=== PATIENT | female | born 1995 | race Caucasian/White ===

== ENCOUNTER 2021-03-12 10:45 | Emergency (ER) | payer OTHER, SELFPAY ==
--- NOTE | ~2021-03-12 | XR_ITS ---
. EXAMINATION: [id number] DATE: 03/12/2021 11:33 INDICATION: Right chest pain. TECHNIQUE: A frontal view of the chest and 3 views of the right ribs were obtained. COMPARISON: Chest 2 views 07/03/2017 FINDINGS: The chest demonstrates clear lungs without pneumonia, pleural effusion, or pneumothorax. Th e heart size is normal. There is a fracture deformity of right seventh rib. IMPRESSION: 1. Age indeterminant right seventh rib fracture. Reviewed, dictated and finalized at location A.
[2021-03-12 11:01] VITALS: BP 113/79; PULSE 80; RESP 14; TEMP 37.5; O2SAT 100
--- NOTE | 2021-03-12 11:07 | ED.GENADULT ---
HPI - General Adult General Chief complaint: Chest Pain Stated complaint: right side rib pain Time Seen by Provider: 03/12/21 11:07 Source: patient and RN notes reviewed History of Present Illness HPI narrative: Patient is a 25-year-old female who presents the urgent care with complaints of right rib pain under the right breast. Patient states is been ongoing for 8 days and seems to be worsening with movement and deep breathing. Patient denies any recent cough, fevers, shortness of breath. Patient states that she lifts heavy at work but denies of any trauma to the chest. Denies any recent falls. Patient has been taking aspirin for the pain. No other acute complaints. No acute distress noted. Patient aware of the plan of care. Some parts of this dictation were generated by voice recognition software and may contain typographical and/or grammatical inaccuracies. Related Data Home Medications Medication Instructions Recorded Confirmed No Home Medications 03/12/21 03/12/21 Allergies Allergy/AdvReac Type Severity Reaction Status Date / Time Penicillins Allergy Unknown HIVES Verified 03/12/21 11:10 Review of Systems Review of Systems: Narrative: CONSTITUTIONAL: Denies fever, chills, or sweats. EYES: Denies visual changes, redness, or discharge. ENT: Denies rhinorrhea, congestion, sore throat, or otalgia. CARDIOVASCULAR: Denies chest pain, palpitations, or edema. RESPIRATORY: Denies cough or dyspnea. Reports of right rib anterior tenderness and pain with deep breathing GASTROINTESTINAL: Denies abdominal pain, nausea, vomiting, or diarrhea. GENITOURINARY: Denies dysuria or hematuria. SKIN: Denies rash or itching. MUSCULOSKELETAL: Reports of right rib pain. Denies back pain, joint pain, or myalgia. NEUROLOGIC: Denies headache, numbness, or weakness. All other systems reviewed are negative, except as documented in HPI. PMFSH Comments At the time of my signature, I reviewed and agree with the nursing past medical, surgical, social, and family history. There is no relevant family history pertinent to the patient complaint. Exam Narrative: Exam Narrative: GENERAL: This is a well-nourished, well-developed patient, in no apparent distress. HEAD: normocephalic, atraumatic. EYES: PERRL. Sclera clear/white. Vision is grossly intact. EARS: External ears normal NOSE: External nose normal with no obvious nasal discharge, nares without redness, no rhinorrhea. THROAT: Mucous membranes moist NECK: Neck supple CARDIOVASCULAR: Regular rate and rhythm without murmurs, gallops, or rubs. RESPIRATORY: Clear to auscultation. Breath sounds equal bilaterally. No wheezes, rales, or rhonchi. Anterior right rib tenderness and obvious pain with deep breathing. No bruising to the chest noted. SKIN: warm, intact with no suspicious lesions or rash, good texture and turgor. NEURO: awake, alert, and oriented to person, place and time. There were no obvious focal neurologic abnormalities. EXTREMITIES: No clubbing, cyanosis, or edema. Course Vital Signs Vital signs: Vital Signs Temperature 99.5 F 03/12/21 11:01 Pulse Rate 80 03/12/21 11:01 Respiratory Rate 14 03/12/21 11:01 Blood Pressure 113/79 03/12/21 11:01 Pulse Oximetry 100 03/12/21 11:01 Temperature 99.5 F 03/12/21 11:01 Pulse Rate 80 03/12/21 11:01 Respiratory Rate 14 03/12/21 11:01 Blood Pressure 113/79 03/12/21 11:01 Pulse Oximetry 100 03/12/21 11:01 Reviewed Medical Decision Making MDM Narrative Medical decision making narrative: Reviewed x-ray results with the patient. She is aware that she does have a 7th rib fracture. Advised the patient not to bind the chest with anything. Avoid any heavy lifting or strenuous activity until pain is tolerated. It can take up to 1 month or longer for complete pain relief. Advised the patient to use Tylenol/ibuprofen as needed for pain. May use ice to the area when at rest. If you develop any increase in sympto
== END 2021-03-12 11:57 | disposition home or self-care (01) ==
PROVIDERS: Emergency Provider Nurse Practitioner Family
DX: S22.31XA Fracture of one rib, right side, initial encounter for closed fracture (principal)
CPT/HCPCS: 71101; 99213; G0463

== ENCOUNTER 2023-09-08 14:45 | Observation (INO) | payer OTHER, SELFPAY ==
[2023-09-08 15:11] VITALS: BP 110/63; PULSE 98
[2023-09-08 15:15] VITALS: BP 105/68; PULSE 102
[2023-09-08 15:30] VITALS: BP 104/66; PULSE 96
[2023-09-08 15:31] LABS: Appearance Urine Cloudy (Clear); Bacteria Urine None Seen /hpf; Bilirubin Urine Negative (Negative); Blood Urine Negative (Negative); Color Urine Yellow (Yellow); Glucose Urine UA Negative (Negative); Ketones Urine Negative (Negative); Leukocyte Esterase Ur Negative LEU/UL (NEGATIVE); Nitrate Urine Negative (Negative); Non Pathogenic Casts 0-2; Protein Urine Negative (Negative); RBC Urine 0-2 /hpf (0-2); Squamous Epithelial Cell Urine Few /hpf (Few); Urobilinogen Urine 0.2 mg/dL (<2.0); WBC Urine 0-5 /hpf (0-3); pH Urine 7.5 (5.0-9.0)
[2023-09-08 15:45] VITALS: BP 104/67; PULSE 90
[2023-09-08 15:48] LABS: Add Urine Microscopic? YES
[2023-09-08 16:00] VITALS: BP 103/64; PULSE 98
[2023-09-08 16:15] VITALS: BP 113/63; PULSE 90
[2023-09-08] MEDS: ACETAMINOPHEN 500 MG TABLET 1000 MG PO (16:27)
--- NOTE | 2023-09-09 15:18 | PM.OBTRLD ---
OB - Triage/Final Diagnosis Visit Information Date of evaluation: 09/08/23 Reason for evaluation: other (back pain) Comments/Additional reasons for admission: I have assessed the risk for this patient, Jie Parham, and determined that she would benefit from observation care. Evaluation Laboratory results: Laboratory Tests 09/08/23 15:15 Urine Color Yellow Urine Appearance Cloudy H Urine pH 7.5 Ur Specific [place]klin 1.010 Urine Protein Negative Urine Glucose (UA) Negative Urine Ketones Negative Ur Blood (Man) Negative Urine Nitrate Negative Urine Bilirubin Negative Urine Urobilinogen 0.2 Ur Leukocyte Esterase Negative Urine RBC 0-2 Urine WBC 0-5 Ur Squamous Epith Cells Few Urine Bacteria None seen Urine Casts 0-2 Vital signs: Vital Signs - 24 hr 09/08/23 15:30 09/08/23 15:45 09/08/23 16:00 Pulse Rate 96 90 98 Blood Pressure 104/66 104/67 103/64 09/08/23 16:15 Pulse Rate 90 Blood Pressure 113/63
== END 2023-09-08 17:17 | disposition home or self-care (01) ==
PROVIDERS: Admitting Provider Obstetrics & Gynecology; Visit Provider Obstetrics & Gynecology
DX: O26.892 Other specified pregnancy related conditions, second trimester (principal); M54.9 Dorsalgia, unspecified; Z3A.25 25 weeks gestation of pregnancy
CPT/HCPCS: 81001; 87086; A9270; G0378; G0379

== ENCOUNTER 2023-12-15 06:22 | Inpatient (IN) | payer OTHER, SELFPAY ==
[2023-12-15] VITALS (107 sets, daily range): BP systolic 84–247; BP diastolic 43–181; PULSE 56–246; RESP 18; TEMP 36.5–37.3; O2SAT 89–100; BMI 25.8
[2023-12-15 07:16] LABS: Basophils Absolute Auto 0.1 K/mm3 (0.0-0.1); Basophils Percent Auto 0.4 % (0.2-1.2); Eosinophils Absolute Auto 0.2 K/mm3 (0-0.3); Hematocrit 31.4 % (37.0-47.0); Immature Granulocyte Absolute 0.19 K/mm3 (0.00-0.031); Immature Granulocyte Percent A 1.1 % (0-0.5); Lymphocytes Absolute Auto 3.59 K/mm3 (0.9-3.2); Lymphocytes Percent Auto 20.4 % (18.3-44.2); Mean Corpuscular HGB Conc 31.8 g/dl (32-36); Mean Corpuscular Hemoglobin 27.4 pg (26-34); Mean Platelet Volume 11.6 fl (7.4-10.4); Monocytes Percent Auto 5.9 % (2.6-8.5); Neutrophils Absolute Auto 12.5 K/mm3 (1.3-6.7); Neutrophils Percent Auto 71.2 % (45.5-73.1); Nucleated Red Blood Cells Perc 0.1 % (0.0-0.2); Platelet Count Result 226 k/mm3 (150-375); Red Blood Count 3.65 M/mm3 (4.2-5.4); Red Cell Distribution Width 13.5 % (11.5-14.5); White Blood Count 17.6 K/mm3 (4.5-10.0)
[2023-12-15] MEDS: LACTATED RINGERS 1,000 ML 125 ML IV CONT ×2 (07:30→12:52)
[2023-12-15] MEDS: OXYTOCIN 30 UNITS/NS 500 ML 30 UNITS/500 ML BAG IV CONT (07:30)
--- NOTE | 2023-12-15 07:38 | LDADM ---
This patient, Jie Parham, was admitted to Labor/Delivery/Recovery 109 on 12/15/23 at 06:22. Plans for labor, pain management and were discussed with patient. Patient/family oriented to hospital policies and general routines including ID bracelet, bed and alarms, visiting hours, pain management, procedures, bathroom and other care routines, personal items, smoking policy, room service/diet and guest tray routines, infant security routines, and visiting hours. Patient/Family are encouraged to report perceived risks to care and to ask questions if they do not understand what they are told or what they should do. See OBIX for further documentation.
--- NOTE | 2023-12-15 08:33 | WPDANESEPP ---
Anes - Eval Pre Procedure Procedure: Labor Epidural Date/Time: 12/15/23 08:33 Surgeon: Marcelo Preop Diagnosis: Pain during labor Pre Op Diagnosis: IOL Patient Data Age: 28 Gender: F Height: 1.57 m Weight: 64 kg Last Vital Signs Pulse 100 12/15/23 08:30 BP 116/81 12/15/23 08:30 O2 Del Method Room Air 12/15/23 07:35 Allergies Allergy/AdvReac Type Severity Reaction Status Date / Time Penicillins Allergy Unknown HIVES Verified 12/15/23 07:47 Home Medications Medication Instructions Recorded Confirmed Type No Home Medications 03/12/21 12/15/23 History Laboratory Tests 12/15/23 07:01 WBC 17.6 H K/mm3 (4.5-10.0) RBC 3.65 L M/mm3 (4.2-5.4) Hgb 10.0 L g/dL (12.0-15.0) Hct 31.4 L % (37.0-47.0) MCV 86.0 fl (80-100) MCH 27.4 pg (26-34) MCHC 31.8 L g/dl (32-36) RDW 13.5 % (11.5-14.5) Plt Count 226 k/mm3 (150-375) MPV 11.6 H fl (7.4-10.4) Immature Gran % (Auto) 1.1 H % (0-0.5) Neut % (Auto) 71.2 % (45.5-73.1) Lymph % (Auto) 20.4 % (18.3-44.2) Bracken % (Auto) 5.9 % (2.6-8.5) Eos % (Auto) 1.0 % (0-4.4) Baso % (Auto) 0.4 % (0.2-1.2) Lymph # (Auto) 3.59 H K/mm3 (0.9-3.2) Bracken # (Auto) 1.0 H K/mm3 (0.1-0.6) Eos # (Auto) 0.2 K/mm3 (0-0.3) Baso # (Auto) 0.1 K/mm3 (0.0-0.1) Abs Immat Gran (auto) 0.19 H K/mm3 (0.00-0.031) Absolute Neuts (auto) 12.5 H K/mm3 (1.3-6.7) Absolute Nucleated RBC 0.020 H K/mm3 (0.0-0.012) Nucleated RBC % 0.1 % (0.0-0.2) RPR Pending Blood Type A Positive Antibody Screen Negative Patient hx anesthesia problems: none Family hx anesthesia problems: none Results Review: All pre-operative results and documents have been reviewed as part of the pre-operative evaluation. [facility] Social History Social History Smoking status: Current some day smoker Tobacco type: e-cigarettes/vaping Second hand tobacco smoke exposure: Yes Substance use: former Other substance usage details: stopped marijuana use when found out about Do You Feel Safe in your Home?: Yes Lack of Transportation: No Lack of Food: Never True Current Housing: I Have Housing Concerned About Future Housing: No Difficulty Paying Gas/Electric Bills: No Difficulty Paying for Meds: No Currently Unemployed: YES Education: High School Diploma/GED Difficulty w/ Childcare or Family Care: No Spiritual care concerns: No Exam Day of Procedure 12/15/23 08:33 Patient weight: overweight Neurological: alert and oriented
[2023-12-15 09:45] LABS: Amphetamine Screen Urine Negative (Negative); Barbiturate Screen Urine Negative (Negative); Benzodiazepines Screen Urine Negative (Negative); Cannabinoid Screen Urine Positive (Negative); Cocaine Screen Urine Negative (Negative); Methadone Screen Urine Negative (Negative); Opiate Screen Urine Negative (Negative); Phencyclidine Screen Urine Negative (Negative)
[2023-12-15] MEDS: fentaNYL CITRATE INJ (*CRX) 100 MCG/2 ML VIAL IV PUSH (10:41)
[2023-12-15 11:43] LABS: Rapid Plasma Reagin Non-Reactive (NonReactive)
--- NOTE | 2023-12-15 15:36 | PM.OBPRVD ---
OB - Vaginal Delivery Note Procedure Delivery date: 12/15/23 Events: Elective Induction of Labor Induction method: AROM and Per Pitocin Protocol Delivery monitor: External FHT and Internal Uterine Route of delivery: Episiotomy description: None Laceration Description: None Specimen: No Quantitative Blood Loss (ml): 80 Anesthesia type: Epidural Disposition: Floor Narrative: mother and baby skin to skin in stable condition Baby Weeks of gestation at delivery: 39
[2023-12-15] MEDS: OXYTOCIN 30 UNITS/NS 500 ML 30 UNITS/500 ML BAG 125 UNITS IV CONT (15:42)
--- NOTE | 2023-12-15 17:32 | PC.NURSE ---
Patient transferred to post room #285 via wheel chair. Support person present. Oriented to unit, room, information board, rooming in, admission packet and security measures. Patient verbalizes understanding.
[2023-12-15] MEDS: IBUPROFEN 600 MG TABLET PO (18:36)
[2023-12-15] MEDS: ACETAMINOPHEN 325 MG TABLET 650 MG PO (20:58)
[2023-12-16] MEDS: IBUPROFEN 600 MG TABLET PO ×2 (05:04→12:41)
[2023-12-16 05:53] LABS: Hematocrit 31.1 % (37.0-47.0); Hemoglobin 9.6 g/dL (12.0-15.0)
[2023-12-16 08:10] VITALS: BP 100/72; PULSE 66; RESP 16; TEMP 37.2; O2SAT 100
--- NOTE | 2023-12-16 08:19 | PM.OBPNVD ---
OB - PN: Subj Subjective Date/time seen: 12/16/23 08:19 Patient comments: no complaints, pain well controlled, incisional pain, tolerating diet and flatus present OB - PN: Obj Data Labs 12/16/23 04:55 Labs: Laboratory Results - last 24 hr 12/15/23 12/15/23 12/16/23 07:01 09:09 04:55 Hgb 9.6 L Hct 31.1 L Urine Opiates Screen Negative Urine Methadone Screen Negative Ur Barbiturates Screen Negative Ur Phencyclidine Scrn Negative Ur Amphetamine Screen Negative U Benzodiazepines Scrn Negative Urine Cocaine Screen Negative U Cannabinoids Screen Positive A RPR Non-reactive OB - PN A/P Plan day: 1 Plan: routine care Comments: No problems, routine care Time Spent With Patient Time: Total time spent is greater than 50% in coordination of care (as documented) at patient's floor/unit and/or counseling patient: Exam Const: General: comfortable, no acute distress and alert Resp: Effort & Inspection: normal respiratory effort Auscultation: no crackles, no rales and no rhonchi Cardio: Rate: regular rate Heart sounds: no click, no murmurs and no rubs GI: Inspection: non-distended GI Palp: No Tenderness to palpation present (GI) Auscultation: normal bowel sounds Other: Incision - CDI Extrem: General: normal to inspection, no pedal edema and no calf tenderness
--- NOTE | 2023-12-16 08:34 | WPDANLDPN2 ---
Anes-Prog Note L&D Date/Time: 12/16/23 08:34 Neuro status: Neuro function grossly intact. Vital Signs: Last Vital Signs Temp 37.3 C 12/15/23 23:48 Pulse 56 L 12/15/23 23:48 Resp 18 12/15/23 23:48 BP 116/80 12/15/23 23:48 Pulse Ox 100 12/15/23 23:48 O2 Del Method Room Air 12/15/23 07:35 Pain score (VAS): 0 I/O: Intake & Output 12/15/23 12/16/23 12/16/23 23:59 07:59 15:59 Output Total 195 Balance -195 Patient feedback: Patient satisfied with anesthetic care.
[2023-12-16] MEDS: MULTIVIT/MIN/PREN/FOL AC/IRON TABLET 1 TAB PO (09:16)
[2023-12-16] MEDS: ACETAMINOPHEN 325 MG TABLET 650 MG PO ×2 (09:16→14:03)
[2023-12-16] MEDS: POLYSACCHARIDE IRON COMPLEX 150 MG CAPSULE PO (09:16)
[2023-12-16] MEDS: DOCUSATE SODIUM 100 MG CAPSULE PO (09:16)
[2023-12-16 12:05] VITALS: BP 101/71; PULSE 83; RESP 18; TEMP 37.5; O2SAT 100
--- NOTE | 2023-12-16 15:06 | PC.NURSE ---
[id number] Introductions were made, then consulted with patient to assess needs related to . Discussed with mother her?plans to feed?her infant, the?experience so far, and first time Mother verbalizes she is able to independently latch with appropriate positioning and alignment. She denies any nipple discomfort and is responsively . Infant is currently meeting outcomes for weight, output, jaundice, blood sugar and feeding frequencies of 8-12 times in 24 hours. Encouraged understanding of the benefits of skin to skin (demonstrating unwrapping infant and placing upright on her chest), stimulating with massage touch, changing positions to encourage wakefulness, how to watch for early feeding cues, responsive feeding, feeding on demand (aiming for 8-12 times in 24 hours, about every 2-3 hours), milk production, building/maintaining a milk supply, duration of feeding, signs of adequate intake/output and how to record on the feeding sheet. Education given to the mother of how to visualize the suckling (with good rocking jaw motion), swallows (dropping of the lower jaw) and how to listen for drinking at the breast (the ka sound). Reviewed comfort measures of healing with a warm, wet washcloth to rinse breast, then leave open to air-dry, good handwashing when or touching the breast/nipples to prevent infection. Reinforced understanding of milk production, transition of milk, signs of adequate intake, transition of stool, prevention/relief of engorgement, plugged ducts, mastitis, and responsive watching for feeding cues.Parents voiced understanding of information, demonstrated learning and will call if there is a request for assistance.
[2023-12-16 20:26] VITALS: BP 120/80; PULSE 91; RESP 16; TEMP 36.8; O2SAT 100
[2023-12-16 21:00] VITALS: PULSE 91; RESP 16; O2SAT 100
[2023-12-17] MEDS: IBUPROFEN 600 MG TABLET PO ×2 (00:04→09:30)
--- NOTE | 2023-12-17 08:15 | PM.OBPNVD ---
OB - PN: Subj Subjective Date/time seen: 12/17/23 08:15 Interval history: pp day 1 doing well d/c home today OB - PN: Obj Data Labs 12/16/23 04:55 OB - PN A/P Plan day: 2 Plan: routine care and discharge home Time Spent With Patient Time: Total time spent is greater than 50% in coordination of care (as documented) at patient's floor/unit and/or counseling patient: Review of Systems Review of Systems: All systems reviewed & are unremarkable except as noted in HPI and below Exam Const: General: cooperative Chest: Chest palpation & inspection: normal inspection of the chest Resp: Effort & Inspection: normal respiratory effort Back/Spine/Pelvis: Back: no CVA tenderness Skin: General skin exam: normal color Neuro: General: patient oriented x3 Psych: Appearance: grossly normal
--- NOTE | 2023-12-17 08:17 | PM.OBDSVD ---
DS: Admitting Diagnosis Discharge Date 12/17/23 Admitting Diagnosis IOL DS: Discharge Diagnosis Discharge Diagnosis (1) Vaginal delivery: Code(s): O80 - Encounter for full-term uncomplicated delivery Status: Acute OB - DS: Summary OB Procedures : None OB Procedures Intrapartum: Spontaneous Vag Delivery OB Procedures: : None Peripartum Data Laceration Description: None Episiotomy description: None Time Spent with Patient Time attestation: Total time spent providing and/or coordinating discharge services: Discharge Plan Discharge Attending physician on discharge: Sridhar Robertson Discharging Clinician: Ophelia Curry Patient Disposition: Home, Self-Care Activity: pelvic rest Diet: regular Patient Instructions: Antibiotic Form Stand Alone Forms: General Discharge Information Follow-up/Referrals: Ophelia Curry CNM [Certified Nurse Gis Mapping Technician] - 4 Weeks Discharge Medications: New ibuprofen 600 mg Tablet 600 mg PO Q6H PRN (Reason: Cramping) Qty: 30 0RF polysaccharide iron complex 150 mg iron Capsule 150 mg PO BIDWM Qty: 60 0RF No Action No Home Medications Date of admission: 12/15/23 06:22 Primary Care Provider: PHYSICIAN,INPATIENT AUDITOR Admitting Provider: Sridhar Roebrtson Attending physician on admission: Sridhar Robertson Condition: Stable
[2023-12-17 08:40] VITALS: BP 106/79; PULSE 105; RESP 16; TEMP 36.7; O2SAT 100
[2023-12-17] MEDS: POLYSACCHARIDE IRON COMPLEX 150 MG CAPSULE PO (09:31)
[2023-12-17] MEDS: MULTIVIT/MIN/PREN/FOL AC/IRON TABLET 1 TAB PO (09:31)
[2023-12-17] MEDS: DOCUSATE SODIUM 100 MG CAPSULE PO (09:31)
--- NOTE | 2023-12-17 09:40 | PC.NURSE ---
Patient viewed the discharge video Mother & Baby Care, The First Two Weeks . Patient was given the opportunity and encouraged to ask questions. Patient verbalized understanding of information shared and has been given the mother/baby guide for home reference.
--- NOTE | 2023-12-17 13:15 | PC.NURSE ---
Per mother she would like to no longer receive the Influenza or the TDAP vaccine.
--- NOTE | 2023-12-17 16:16 | PC.NURSE ---
[id number] Consulted with mother concerning needs and she shared she had a rough night. Mother is feeding appropriately for growth of infant and understands stimulating to eat if needed, however; fed infant at 0100, then struggled to get to calm and latch to eat again to finally get a latch at 0700. Discussed with mother her successes, concerns and any questions she has as she became frustrated earlier not knowing how to comfort/calm her infant to breastfeed. We reviewed working with the , supporting breast, protecting her nipples with an optimal deep latch, good positioning, and good hand washing. Encouraged understanding the benefits of skin to skin, responding to feeding cues, frequencies of feeding 8-12 times in 24 hours (approximately 2-3 hours), duration of feedings, milk production, hand expression (mother expressed large multiple drops of colostrum), intake/output feeding sheet and signs of adequate intake encouraging swallowing at the breast. Reviewed positioning and alignment, supporting breast, off-centered (asymmetrical latch) and leading with the chin with big, open, wide gape. latched optimally to the left breast in cross cradle position. Education given to the mother of how to visualize the suckling (with good rocking jaw motion) swallows (dropping of the lower jaw) and how to listen for drinking at the breast (the ka sound) which infant demonstrated well. (During the effective session there were 6 swallows back to back with 1:1 suck/swallow ratios visualized at one point) The infant was able to maintain latch without discomfort to mother. Nipple care reviewed with optimal latch, good positioning and using clean hands when touching her breast. We reviewed and discussed ways to comfort using [id number], hand expression, touch, and taking care of themselves working together as a team to get through the next few days. Reinforced understanding of milk production, transition of milk, signs of adequate intake, transition of stool, prevention/relief of engorgement, plugged ducts, mastitis, responsive watching for feeding cues, the different methods of stimulating to breastfeed 1-3 hours after the start of the last feeding, community resources, and when to call a provider using the resource of the feeding sheet along with the mom and baby guide. Parents voiced understanding of the information shared and mother is confident to continue effectively her at home, when to call for assistance, denies any additional assistance or education at this time. Reported to the Primary RN.
[2023-12-20 09:09] VITALS: BP 107/84; PULSE 78; RESP 18; TEMP 36.6; O2SAT 100
== END 2023-12-17 14:18 | disposition home or self-care (01) | DRG 560 ==
LOC: ANHLDR 06:39 → ANHOB2 17:43
PROVIDERS: Advanced Practice Midwife; Admitting Provider Obstetrics & Gynecology; Visit Provider Obstetrics & Gynecology
DX: O62.3 Precipitate labor (principal); Z37.0 Single live birth; Z3A.39 39 weeks gestation of pregnancy; O69.81X0 Labor and delivery complicated by cord around neck, without compression, not applicable or unspecified
CPT/HCPCS: 36415; 80307; 85014; 85018; 85025; 86592; 86850; 86900; 86901; A9270; J2590; J2795; J3010; J7120

== ENCOUNTER 2025-02-15 09:18 | Emergency (ER) | payer OTHER, SELFPAY ==
[2025-02-15 09:20] VITALS: BP 128/82; PULSE 108; RESP 16; TEMP 36.4; O2SAT 100
--- OUTSIDE RECORDS SUMMARY | 2025-02-15 09:22 | XMS_ITS | Data Portability ---
Author Organization [facility] [place] Address [address] [place] [address] [place] [address] Assessment Encounter Date Assessment Date Assessment LastModified by Organization Details LastModified Time 01/13/2024 01/13/2024 28-year-old female who presents for follow-up. Her baby is doing well. Her baby is breast and bottle feeding. Her mood of the mother is excellent. She is not bleeding. She has not had intercourse. We are going to proceed with laparoscopic tubal ligation. This will be done in 30 days. [email or web address] Not available 01/13/2024 17:17:52 Plan of Treatment Reminders Order Date Submit Date Provider Last Modified By Organization Details Last Modified Time Details Appointments None recorded. Lab test, urine 2023 024 [email or web address] [address], [address], [place], [address], 13:05:09 drug screen, urine 2023 024 [email or web address] 1 [address], [address], [place], [address], 17:00:52 Referral None recorded. Procedures None recorded. Surgeries salpingecto my, laparoscopi c (SURG) [email or web address] [place] [address] Surgery [facility], [address], [place], [address], 09:53:27 Imaging US, obstetric, follow-up 2023 024 [email or web address] [address], [address], [place], [address], 4 19:58:56 US, obstetric, follow-up 2022 023 [email or web address] [place], [address], [place], [address], 3 10:28:40 Medication Orders Mirena 21 mcg/24 hr (up to 8 years) 52 mg intrauterin e device 2023 024 [email or web address] [id number], [address], [place], [place], [id number], 4 13:06:59 Patient TargetsNo targets recorded. Patient InstructionsNo instructions recorded. Reason for Referral None Reported. Results Created Date Observation Date Name Description Value Unit Range Abnormal Flag Note LastModifiedBy Organization Detail LastModifiedTime 12/09/19 24 12/09/2023 HEMAT OCRIT (HCT) HCT 31.0 % (based on docume nted legal sex) 34.0-4 5.0 low Not Available [facility] (Lab) [address] [place], [address], 12/10/2023 07:02:39 12/09/19 24 12/09/2023 HEMOG LOBIN (HGB) HGB 10.0 g/dL (based on docume nted legal sex) 11.6-1 5.4 low Not Available [facility] (Lab) [address], [place], [address], 12/10/2023 07:02:40 12/09/19 24 12/09/2023 HIV 1/2 ANTIG EN/AN TIBOD Y, REFLE X CONFI RMATI ON HIV antigen/anti body Nonrea ctive nonrea ctive HIV-1 antig en and HIV-1 /HIV- 2 antib odies were not detec grace. No labor atory evide nce of HIV infec tion. Not Available [facility] (Lab) [address], [place], [address], 12/10/2023 07:02:40 12/09/19 24 12/09/2023 HEMOG LOBIN A1C hemoglobin A1C 5.1 % 0-5.6 The Ameri can Diabe nicho Assoc iatio n recom mends that a prima ry goal of thera py shoul d be a HBA1C of < 7% and that physi cians shoul d reeva luate the treat ment regim en in patie nts with HBA1C value s consi stent ly > 8%. <5.7% Nataliia l 5.7 - 6.4% Incre ased risk for diabe nicho >=6.5 % Diagn ostic of diabe nicho <7.0% Goal of thera py >8.0% Actio n sugge sted Not Available [facility] (Lab) [address], [place], [address], 12/10/2023 07:02:41 12/09/19 24 12/09/2023 drug scree n, urine Amphetamines : negati ve Not Available [place] [address], [place], [address], 12/09/2023 16:58:26 12/09/19 24 12/09/2023 drug scree n, urine Cannabinoids : negati ve Not Available [place] [address], [place], [address], 12/09/2023 16:58:26 12/09/19 24 12/09/2023 drug scree n, urine Cocaine: negati ve Not Available [place] [address], [place], [address], 12/09/2023 16:58:26 12/09/19 24 12/09/2023 drug scree n, urine Opiates: negati ve Not Available [place] [address], [place], [address], 12/09/2023 16:58:26 12/09/19 24 12/09/2023 drug scree n, urine Phenocyclidi ne: negati ve Not Available [place] [address], [place], [address], 12/09/2023 16:58:26 12/09/19 24 12/09/2023 drug scree n, urine Barbiturates : negati ve Not Available [place] [address], [place], [address], 12/09/2023 16:58:26 12/09/19 24 12/09/2023 drug scree n, urine Benzodiazepi amber: negati ve Not Available [place] [address], [place], [address], 12/09/2023 16:58:26 12/09/19 24 12/09/2023 drug scree n, urine Ethanol: negati ve Not Available [place] [address], [place], [address], 12/09/2023 16:58:26 12/09/19 24 12/09/2023 drug scree n, urine Hallucinogen s: negati ve Not Available [place] [address], [place], [address], 12/09/2023 16:58:26 12/09/19 24 12/09/2023 drug scree n, urine Inhalants: negati ve Not Available [place] [address], [place], [address], 12/09/2023 16:58:26 12/09/19 24 12/09/2023 drug scree n, urine Anabolic Steroids: negati ve Not Available [place] [address], [place], [address], 12/09/2023 16:58:26 12/09/19 24 12/09/2023 drug scree n, urine Other: positi ve Not Available [place] [address], [place], [address], 12/09/2023 16:58:26 01/24/20 24 01/24/2024 CT/GC AND TRICH OMONA S VAGIN WALTER (RRNA ), URINE chlamydia trachomatis, PCR Negati ve negati ve Not Available [facility] (Lab) [address], [place], [address], 01/25/2024 15:05:09 01/24/20 24 01/24/2024 CT/GC AND TRICH OMONA S VAGIN WALTER (RRNA ), URINE neisseria gonorrhoeae, PCR Negati ve negati ve Not Available [facility] (Lab) [address], [place], [address], 01/25/2024 15:05:09 01/24/20 24 01/24/2024 CT/GC AND TRICH OMONA S VAGIN WALTER (RRNA ), URINE trichomonas vaginalis ribosomal RNA (rrna) Negati ve negati ve Not Available [facility] (Lab) [address], [place], [address], 01/25/2024 15:05:09 01/24/20 24 01/24/2024 pregn tam test, urine HCG negati ve Not Available [place] [address], [place], [address], 01/24/2024 13:04:53 09/20/20 23 09/20/2023 US, obste tric, follo w-up No observ ation record ed. [email or web address] [place] [address], [place], [address], 09/20/2023 16:13:53 09/20/20 23 09/20/2023 US, obste tric, follo w-up No observ ation record ed. [email or web address] [address], [place], [address], 09/23/2023 09:56:36 12/09/19 24 12/09/2023 US, obste tric, follo w-up No observ ation record ed. [email or web address] [place] [address], [place], [address], 12/09/2023 16:40:42 12/09/19 24 12/09/2023 US, obste tric, follo w-up No observ ation record ed. BRIA [address], [place], [address], 12/24/2023 04:03:17 Result Notes None recorded. Problems Name Problem SNOMED Code Status Onset Date Resolution Date Notes Provider Name and Address Organization Details Recorded Time 40576321 Completed 202212/17/2023 Xochitl maldonado [facility] 4 14:22:14 Marijuana user [id number] Com[facility] 4 14:22:11 Anemia [id number] Completed 2023 1 tab slowfe BID; 1 tab daily pp Xochitl Har[facility] 4 14:22:11 Problem Notes None recorded. Procedures Surgical History Date Name Laterality Status Provider Name and Address Organization Details Recorded Time 01/24/20 24 IUD Insertion completed Aly Robertson MD [address], [place], [address], [facility] 01/24/2024 14:33:11 05/19/20 23 Date of Last Pap Smear completed Jamilah Mckeon [facility] 01/13/2024 16:46:37 01/06/20 18 Dilation and Curettage completed Anita Gonzales [facility] 06/09/2023 18:29:22 10/04/19 07 Tonsillectomy completed Jamilah Mckeon [facility] 12/22/2023 20:50:58 Imaging Results Imaging Date Name Status LastModified by Organiz ation Details LastModified Time 09/20/2023 US, obstetric, follow-up completed [email or web address] [place] [address], [place], [address], 09/20/2023 16:13:53 09/20/2023 US, obstetric, follow-up completed [email or web address] [address], [place], [address], 09/23/2023 09:56:36 12/09/2023 US, obstetric, follow-up completed [email or web address] [place] [address], [place], [address], 12/09/2023 16:40:42 12/09/2023 US, obstetric, follow-up active BRIA [address], [place], [address], 12/24/2023 04:03:17 Procedure Notes None recorded. Medical Equipment None Reported. Allergies Allergen ID Allergen Name Allergen Category Reaction Reaction Severity Criticality Documentation Date Start Date Code Code System Note Provider Name and Address Organization Details Recorded Time 18037 Product containin g penicilli n (product) medicatio n hives Not available Not available 09/20/2020 40883 8001 SNOMED ALL CILLI NS Anitaloco maldonado, [facility] 3 18:26:15 Medications Name Sig Start Date Stop Date Status Note LastModified by Organization Details LastModified Time Mirena 21 mcg/24 hr (up to 8 years) 52 mg intrauter ine device Take 1 device by intraute rine route. 2023 active mirena IUD inserted (supplie d by office) 4 and needs removed by 2 Not Available Not Available Not Available fluconazo le 150 mg tablet TAKE 1 TABLET BY MOUTH EVERY OTHER DAY 01/12 completed Not Available Not Available Not Available ondansetr on HCl 8 mg tablet take 1 tablet by oral route every 8 hours for 2 days 12/30 completed Prescrib ed Elsewher e: No Locat ion: Jacob holcomb [facility] odify By: [email or web address] Encounte r DateTime : 12/30/19 18 11:15:00 AM Not Available Not Available Not Available polysacch aride iron complex 150 mg iron capsule TAKE 1 CAPSULE BY MOUTH TWICE DAILY WITH MEALS active Not Available Not Available No t Available metronida zole 0.75 % (37.5 mg/5 gram) vaginal gel INSERT 1 APPLICAT ORFUL VAGINALL Y EVERY DAY 01/12 completed Not Available Not Available Not Available metronida zole 500 mg tablet TAKE 1 TABLET BY MOUTH TWICE DAILY FOR 7 DAYS 01/12 completed Not Available Not Available Not Available promethaz ine 25 mg tablet Take 1 tablet every 4 hours by oral route. 01/12 completed Not Available Not Available Not Available Wellbutri n 75 mg tablet take 1 tablet by oral route 3 times every day 05/10 completed Prescrib ed Elsewher e: Yes [facility] By: morris [email or web address] DateTime : 02/03/20 17 03:30:00 PM Not Available Not Available Not Available Qvar 40 mcg/actua tion Metered Aerosol oral inhaler inhale 2 puff by inhalati on route 2 times every day 05/10 completed Prescrib ed Elsewher e: Yes [facility] By: amjoann [email or web address] DateTime : 02/03/20 17 03:30:00 PM Not Available Not Available Not Available ibuprofen 600 mg tablet TAKE 1 TABLET BY MOUTH EVERY 6 HOURS NEEDED FOR CRAMPING 01/12 completed Not Available Not Available Not Available Zoloft 25 mg tablet take 1 tablet by oral route every day 05/10 completed Prescrib ed Elsewher e: Yes [facility] By: [email or web address] E ncounter DateTime : 02/03/20 03:30:00 PM Not Available Not Available Not Available metoclopr amide 10 mg tablet TAKE 1 TABLET BY MOUTH FOUR TIMES DAILY NEEDED 01/12 completed Not Available Not Available Not Available Zithromax 500 mg tablet take 2 tablet by oral route every once 05/10 completed Prescrib juli Santiago e: No Locat ion: Anand zhang [facility] odify By: serge sullivan DateTime : 12/24/19 18 06:02:52 PM Not Available Not Available Not Available Vitamin 01/23 completed Not Available Not Available Not Available Vitals Date Recorded Body height Body mass index (BMI) Body weight Systolic blood pressure Diastolic blood pressure Provider Name and Address Organization Details Last Updated DateTime 09/20/2023 154.94 cm 24.9 kg/m2 73844.19 284 g 105 mm[Hg] 70 mm[Hg] Anita Gonzales [facility] 3 16:23:04 Date Recorded Body height Body mass index (BMI) Body weight Systolic blood pressure Diastolic blood pressure Provider Name and Address Organization Details Last Updated DateTime 01/13/2024 154.94 cm 24.6 kg/m2 02532.01 g 111 mm[Hg] 77 mm[Hg] Jamilah Mckeon [facility] 4 16:43:17 Date Recorded Body height Body mass index (BMI) Body weight Systolic blood pressure Diastolic blood pressure Provider Name and Address Organization Details Last Updated DateTime 01/24/2024 154.94 cm 24.8 kg/m2 57376.6 g 112 mm[Hg] 74 mm[Hg] Lexi Mckeon [facility] 4 13:03:09 Social History Question Answer Notes LastModified by Organizat ion Details LastModified Time Tobacco Smoking Status Never Smoker Anita Janet maldonado [facility] 06/09/2023 18:25:59 Are You Blind Or Do You Have Difficulty Seeing? No Information n ot available 06/09/2023 What Is Your Level Of Caffeine Consumption? Occasional Information not available 06/09/2023 How Much Tobacco Do You Chew? None Information not available 06/09/2023 In The 14 Days Before Symptom Onset, Have You Had Close Contact With A Laboratory-confirm ed COVID-19 While That Case Was Ill? No Information n ot available 06/09/2023 In The 14 Days Before Symptom Onset, Have You Had Close Contact With A Person Who Is Under Investigation For COVID-19 While That Person Was Ill? No Information not available 06/09/2023 Have You Been To An Area Known To Be High Risk For COVID-19? No Information not available 06/09/2023 Are You Deaf Or Do You Have Serious Difficulty Hearing? No Information not available 06/09/2023 What Type Of Diet Are You Following? VEGETARIAN Information n ot available 06/09/2023 What Is The Highest Grade Or Level Of School You Have Completed Or The Highest Degree You Have Received? [id number] Information not available 06/09/2023 Are There Any Guns Present In Your Home? No Information not available 06/09/2023 Do You Use Protection During Sex? No Information not available 06/09/2023 Do You Use Your Seat Belt Or Car Seat Routinely? Yes Information not available 06/09/2023 Do You Have Smoke And Carbon Monoxide Detectors In Your Home? Yes Information not available 06/09/2023 How Much Tobacco Do You Smoke? No Information not available 06/09/2023 Do You Use Sunscreen Routinely? Yes Information not available 06/09/2023 Have You Used IV Drugs? No Information not available 06/09/2023 Do You Have Difficulty Walking Or Climbing Stairs? No [email or web address] Information not available 01/13/2024 Sex: Unknown Functional Status Question Answer Note LastModified by Organizat ion Details LastModified Time Do you use any illicit or recreational drugs? Yes Information not available 06/09/2023 What is your level of alcohol consumption? None Information not available 06/09/2023 Are you able to walk? YESWOREST Information not available 06/09/2023 Are you able to care for yourself? Yes [email or web address] Information n ot available 01/13/2024 Do you have difficulty dressing or bathing? No [email or web address] Information not available 01/13/2024 What is your exercise level? Moderate Information not available 06/09/2023 Mental Status Question Answer Note LastModified by Organization D etails LastModified Time Do you feel stressed (tense, restless, nervous, or anxious, or unable to sleep at night)? [id number] Information not available 06/09/2023 Family History Relationship Description Onset Age of this Age Resolved Age Notes LastModified by Organization Details LastModified Time Maternal Grandmother Malignant tumor of breast Not available 2022 12:41:01 Paternal Aunt Polycystic ovary syndrome [email or web address] Not available 2023 16:14:21 Medical History Condition Response Allergies (Food, seasonal, environmental ) Y Other N Breast Cancer N Drug/Latex Allergies/Reactions N Blood Transfusion N Dermatologic Disorders N Lung Disease N Defects or Inherited Disease N Breast Problem N Gestational Diabetes N Hematologic disorders N Anesthesia Complications N History of STI N Deep Vein Thrombosis N Polycystic ovary syndrome Y Anxiety Disorder N Autoimmune disease N Arthritis N Infertility N Polyps N Acid Reflux (GERD) N History of abnormal pap N Cancer N Stroke N Varicosities N Neurologic/Epilepsy N Endometriosis N High Cholesterol N Headaches N Fibromyalgia N Kidney Disease N Heart Problems N Kidney or Bladder Problems N Thyroid Problems N GI Problems N Eating Disorder N Anemia Y Art (IVF or FET) N Psychiatric Illness N Ovarian Cancer N Diabetes N Pulmonary (TB, Asthma) N Hepatitis/Liver Disease N No Past Medical History N Eczema N Urinary Tract Infection N Abuse/Domestic Violence N Asthma Y Trauma/Violence N Depression/ depression N Heart Disease N Pre-Eclampsia N Hypertension N Osteoporosis N Thrombophilias N Gynecological History Statement/Question Response Date of Last Mammogram Date of LMP 03/16/2023 On BCP's at Conception? N N Was last menstrual period normal Y STIs/STDs N HPV Vaccine Y Duration of Flow (days) 5 Current Control Method IUD Sexually Active? Y Date of DEXA bone scan Age of first menstrual cycle 15 Date of Last Pap Smear 05/19/2023 Sexual Problems? N Desired Control Method LMP Definite N Obstetrics History GPAL:G 4 P 2 0 2 2 Type Value Full Term 2 Spontaneous 2 Living 2 Total 4 Past Encounters Encounter ID Performer Location Encounter Start Date Encounter Closed Date Diagnosis/Indication Diagnosis SNOMED-CT Code Diagnosis ICD10 Code Diagnosis Note [id number] Aly Robertson MD [place] [address] [address] 05/10/2023 11:57:16 05/10/2023 13:21:43 Nausea and vomiting 81560010 R11.2 27-year-ol d female presents for follow-up from the emergency department . She has severe nausea and vomiting. She was known to be . She had not seen the prior to or at the emergency department . She continues to have some nausea. We agreed to treat with promethazi ne. She denies any cramping or bleeding. We will keep her OB screening appointmen t. She has a history of multiple miscarriag es. We spent 20 minutes face-to-fa ce. More than 50% was counseling . We treated her for a moderately complex problem. [id number] Aly Robertson MD [place] [address] [address] 05/10/2023 11:59:53 05/10/2023 12:38:54 Uncertain viability of 262950611 O36.80X9 [id number] Tabitha Martinez MD [place] [address] [address] 05/19/2023 10:05:49 05/19/2023 10:50:17 [id number] Tabitha Martinez MD [place] [address] [address] 05/19/2023 10:13:11 05/20/2023 10:27:27 test positive 324270696 Z32.01 Hyperemesi s gravidarum 54465430 O21.0 Screening for malignant neoplasm of cervix 980146043 Z12.4 Venereal d isease screening 728141690 Z11.3 Vaccination not done 750 3026104 9108 Z28.9 [id number] Aly Robertson MD [place] [address],[place] [address] 06/09/2023 17:26:46 06/10/2023 10:11:57 screening 545319582 Z36.82 [id number] MD Rosa Naranjo [address],[place] [address] 06/09/2023 17:27:13 06/10/2023 10:12:51 Routine care 848666592 Z34.90 [id number] MD Rosa Naran[place] [address],[place] [address] 07/21/2023 17:51:17 07/21/2023 18:37:39 Bacterial vaginosis 420057438 N76.0 [id number] MD Rosa Naranjo [address],[place] [address] 08/04/2023 16:18:54 08/04/2023 18:30:11 screening for malformation 129560018 Z36.3 Z3A.20 [id number] MD Rosa Naranjo [address],[place] [address] 08/04/2023 16:19:11 08/04/2023 18:00:26 Routine care 075546005 Z34.90 [id number] MD Rosa Naranjo [address],[place] [address] 09/20/2023 15:39:04 09/20/2023 16:39:30 condition affecting obstetrical care of mother 702865049 O35.8XX0 Z3A.26 [id number] MD Rosa Naranjo [address],[place] [address] 09/20/2023 15:39:24 09/20/2023 17:02:17 Routine care 118368343 Z34.90 [id number] MD Rosa Naranjo [address],[place] [address] 12/09/2023 15:50:54 12/09/2023 16:40:46 Non-compliant behavior 562614368 O41.03X0 O09.33 Z3A.38 Medical ex amination for suspected condition 841463616 Z03.74 [id number] Aly Robertson MD [place] [address],[facility] [place] [address] 12/09/2023 15:52:18 12/09/2023 17:04:31 Routine care 026232256 Z34.90 Gestation period, 38 weeks 77661561 Z3A.38 [id number] Aly Robertson MD [place] [address],[facility] [place] [address] 01/13/2024 16:14:11 01/13/2024 17:26:30 Female sterilization 73520024 Z30.2 [id number] Aly Robertson MD [place] [address],[facility] [address] 01/24/2024 12:43:15 01/24/2024 14:53:04 Screening procedure 83586063 Z13.9 Insertion of intrauterine contraceptive device 52816407 Z30.430 IUD inserted without complicati ons. She tolerated it well. [facility] ion care management 269352693 Z30.9 Health Concerns Section Related Observation LastModified by Organization Detai ls LastModified Time None Recorded Concern Status LastModified by Organization Details LastModified Time None Recorded Advance Directives Directive None Recorded Payers Encounter Date Sequence Insurance Name Policy Number Policy Grande Covered Member ID Grande Member ID Guarantor Name 09/20/2023 1 [facility] ON OR AFTER 04/03/21 (MEDICAID REPLACEMENT - HMO) Jie Parham [id number] Jie Parham 12/09/2023 1 [facility] ON OR AFTER 04/03/21 (MEDICAID REPLACEMENT - HMO) Jie Parham [id number] Jie Parham 12/09/2023 1 [facility] ON OR AFTER 04/03/21 (MEDICAID REPLACEMENT - HMO) Jie Parham [id number] Jie Parham 01/13/2024 1 [facility] ON OR AFTER 04/03/21 (MEDICAID REPLACEMENT - HMO) Jie Parham [id number] Jie Parham 01/24/2024 1 [facility] - DOS ON OR AFTER 21 (MEDICAID REPLACEMENT - HMO) Jie Parham [id number] Jie Parham Notes Date Note Type Note Provider Name and Address Organization Details Recorded Time 01/13/2024 text/html 28-year-old manjula ferraro who presents for follow-up. Her baby is doing well. Her baby is breast and bottle feeding. Her mood of the mother is excellent. She is not bleeding. She has not had intercourse. We are going to proceed with laparoscopic tubal ligation. This will be done in 30 days. Jamilah maldonado, [facility] 01/13/2024 19:34:28 01/24/2024 text/html Patient presents for IUD insertion. The procedure was explained to the patient in detail. She understands the procedure. She understands risks, benefits, and alternatives. She is completed the informed consent process and is ready to proceed. Aly Robertson MD [address], [place], [address], [facility] 01/24/2024 14:34:57 OBGyn Episode Ob Episode Information Episode Created Date Number of Fetuses Patient Bloodtype Patient rh Status Prepregnancy Weight lbs Domestic Partner Domestic Partner Phone Father Name Legal Support Assistant Status 05/10/20 23 1 CLOSED Fetus Data First Name Last Name Admitted to NICU Weight (g) Sex Living Outcome Pediatric Complications Fetus ID Race Codes Race Delivery Type , Spontane ous [id number] Apollo Calculation Initial Apollo Date Initial Exam Date Initial Exam Provider Initial Ultrasound Date Last Menstrual Period Date Ultra Sound Weeks Gestation 0 Eighteen To Twenty Week Apollo Update Ultra Sound Date Fundal Height At Umbil Quickening Date Ultra Sound Latest Weeks Gestation Final Apollo Confirmed By Final Apollo Confirmed Date Final Apollo Date Ultra Sound Latest Days Gestation 0 0 Menstrual History [id number]|2025-02-15 09:49:00|2025-02-15 09:49:00|ED_ITS|MOR|Health Information Management|[id number]|"HPI - Abdominal Pain General Chief Complaint: Abdominal Pain Stated Complaint: sent by SQUARE D[employer] CALLER to R/O ectopic Time Seen by Provider: 02/15/25 09:38 History of Present Illness HPI narrative: 29-year-old female who is presents to emergency department for pelvic pain, suprapubic abdominal pain, nausea vomiting and vaginal bleeding for the past 4 days. Patient had an IUD placed about a year ago with Dr. Robertson and has reportedly had no complications since and has not had any menstrual cycles since. She states 4 days ago she began developing vaginal bleeding and pelvic pain, worse on the left. She states she has passed some clots and possible tissue. She reports associated nausea, vomiting and lightheadedness. States she is slightly spotting at this point and is having to change a panty liner every couple of hours. She denies dysuria, urinary frequency urgency, vaginal discharge or concern for STDs, fever. She does endorse intermittent hot and cold flashes. She does note that she had a new sexual partner about 3 weeks ago. She contacted Dr. Robertson and was advised to come to the ED for further evaluation. Patient also notes that she took 2 at-home tests over the past 4 days and believes she noticed a positive faint line both times. Related Data Allergies Allergy/AdvReac Type Severity Reaction Status Date / Time Penicillins Allergy Unknown HIVES Verified 02/15/25 09:19 Review of Systems 2 Review of Systems: All systems reviewed & are unremarkable except as noted in HPI and below PMFSH Social History Social History Smoking status: Current some day smoker Tobacco type: e-cigarettes/vaping Second hand tobacco smoke exposure: Yes Substance use: former Other substance usage details: stopped marijuana use when found out about Do You Feel Safe in your Home?: Yes Lack of Transportation: No Lack of Food: Never True Current Housing: I Have Housing Concerned About Future Housing: No Difficulty Paying Gas/Electric Bills: No Difficulty Paying for Meds: No Currently Unemployed: YES Education: High School Diploma/GED Difficulty w/ Childcare or Family Care: No Spiritual care concerns: No Exam 2 Narrative: GENERAL: Well-appearing, well-nourished, and in no acute distress. HEAD: Normocephalic, atraumatic. EYES: EOMI. ENT: Nares clear, no rhinorrhea or epistaxis. Mucous membranes moist. NECK: Supple. CHEST: Clear to auscultation. No respiratory distress. HEART: Regular rate and rhythm. No murmur heard. Normal peripheral pulses. ABDOMEN: Normoactive bowel sounds. Abdomen soft with tenderness in the suprapubic region. No rebound, guarding or rigidity. No CVA tenderness. EXTREMITIES: Normal range of motion. No edema. SKIN: Warm, dry, no rash. NEURO: No focal deficits. Alert and oriented x3 Course Vital Signs Vital signs: Vital Signs Temperature 97.6 F 02/15/25 09:20 Pulse Rate 108 H 02/15/25 09:20 Respiratory Rate 16 02/15/25 09:20 Blood Pressure 128/82 02/15/25 09:20 Pulse Oximetry 100 02/15/25 09:20 Oxygen Delivery Room Air 02/15/25 09:20 Temperature 97.8 F 02/15/25 10:28 Pulse Rate 86 02/15/25 10:28 Respiratory Rate 16 02/15/25 10:28 Blood Pressure 126/76 02/15/25 10:28 Pulse Oximetry 100 02/15/25 10:28 Oxygen Delivery Room Air 02/15/25 09:20 MDM - Abdominal Pain MDM Narrative Medical decision making narrative: 29-year-old female with current IUD placement who is presents to the emergency department for pelvic pain, lower abdominal pain and abnormal vaginal bleeding for the past 4 days. See HPI for further history. Initial vital signs with mild tachycardia 108 which has since resolved. Patient is afebrile and nontoxic appearing resting comfortably in exam bed. Abdomen is soft with tenderness in the suprapubic region. Discussed differential diagnosis with the patient including UTI, STDs, PID, , diverticulitis, appendicitis, tubo-ovarian abscess, dislodged IUD and other. Discussed workup needed for this including lab work, STD testing, UA, UPT, pelvic ultrasound and CT abdomen pelvis with contrast. Nursing staff did obtain lab work which showed no leukocytosis or anemia. Chemistries are unremarkable. UA with trace leuk esterase and 6-10 red blood cells, rbc's 11-20 1+ bacteria. is negative. Prior to receiving remainder of workup including imaging and performing pelvic exam, patient is requesting to leave against medical advice. She states she is having anxiety about her children being at daycare. I did personally speak with the patient and discussed risks of leaving against medical advice at this point including undiagnosed infection, dislodged IUD, developing PID or infertility, sepsis, TBO, permanent disability and . She understands these risks and still like to leave against medical advice. CARRIE paperwork signed. She states she has an appointment with her OBGYN tomorrow which I strongly encouraged her to attend. I advised her to return to the emergency department if she desires further workup or develops any new or worsening symptoms. Given no other source for patient's symptoms at this time and UA findings, will cover for UTI with Macrobid in the interim until she is able to be evaluated further by her OBGYN. Lab Data 02/15/25 10:02 02/15/25 10:02 Labs: Lab Results 02/15/25 02/15/25 02/15/25 Range/Units 09:28 10:01 10:02 WBC 4.9 (4.5-10.0) K/mm3 RBC 4.49 (4.2-5.4) M/mm3 Hgb 13.6 D (12.0-15.0) g/dL Hct 40.6 (37.0-47.0) % MCV 90.4 (80-100) fl MCH 30.3 (26-34) pg MCHC 33.5 (32-36) g/dl RDW 12.8 (11.5-14.5) % Plt Count 175 (150-375) k/mm3 MPV 10.4 (7.4-10.4) fl Immature Gran % (Auto) 0.2 (0-0.5) % Neut % (Auto) 72.5 (45.5-73.1) % Lymph % (Auto) 15.0 L (18.3-44.2) % [place] % (Auto) 10.5 H (2.6-8.5) % Eos % (Auto) 1.6 (0-4.4) % Baso % (Auto) 0.2 (0.2-1.2) % Lymph # (Auto) 0.74 L (0.9-3.2) K/mm3 [place] # (Auto) 0.5 (0.1-0.6) K/mm3 Eos # (Auto) 0.1 (0-0.3) K/mm3 Baso # (Auto) 0.0 (0.0-0.1) K/mm3 Abs Immat Gran (auto) 0.01 (0.00-0.031) K/mm3 Absolute Neuts (auto) 3.6 (1.3-6.7) K/mm3 Absolute Nucleated RBC 0.000 (0.0-0.012) K/mm3 Nucleated RBC % 0.0 (0.0-0.2) % PT 14.2 (11.1-14.7) Seconds INR 1.1 APTT 29.3 (22.3-36.8) Seconds Sodium 138 (137-145) mmol/L Potassium 3.7 (3.4-5.0) mmol/L Chloride 108 H (98-107) mmol/L Carbon Dioxide 22 (22-30) mmol/L Anion Gap 8 (4-12) mmol/L BUN 10 (7-17) mg/dL Creatinine 0.53 L (0.7-1.0) mg/dL Estim Creat Clear Calc 101 ml/min Estimated GFR > 60 (59 - ) Glucose 87 (65-110) mg/dL Calcium 8.5 (8.4-10.2) mg/dL Total Bilirubin 0.5 (0.2-1.3) mg/dL AST 27 (14-36) U/L ALT 17 (6-35) U/L Alkaline Phosphatase 60 (38-126) U/L Total Protein 7.0 (6.3-8.2) g/dL Albumin 4.1 (3.5-5.1) g/dL Urine Color Dark yellow (Yellow) Urine Appearance Turbid H (Clear) Urine pH 5.5 (5.0-9.0) Ur Specific [place] 1.032 (1.001-1.035) Urine Protein 1+ H (Negative) mg/dL Urine Glucose (UA) Negative (Negative) mg/dL Urine Ketones 1+ H (Negative) mg/dL Ur Blood (Man) 3+ H (Negative) Urine Nitrate Negative (Negative) Urine Bilirubin Negative (Negative) Urine Urobilinogen 1.0 (<2.0) mg/dL Add Ur Microanalysis Reviewed Leukocyte Esterase Rfl Trace H (Negative) JERAMIE/UL Urine RBC 11-20 H (0-2) /hpf Urine WBC 6-10 H (0-3) /hpf Ur Squamous Epith Cells Moderate (Few) /hpf Urine Bacteria 1+ H /hpf Urine Casts 0-2 POC Urine HCG, Qual Negative Negative (Negative) Discharge Plan Discharge Clinical Impression: Abnormal uterine bleeding, Abnormal urinalysis Patient Disposition: Left Against Medical Advice Condition: Stable Instructions: Antibiotic Form, Abnormal (Dysfunctional) Uterine Bleeding (ED), Urinary Tract Infection in Women (DC) Additional Instructions: You were evaluated in the emergency department for lower abdominal and pelvic pain and abnormal uterine bleeding. Your choosing to leave against medical advice prior to any further workup. We were unable to evaluate for a dislodged IUD, pelvic inflammatory disease, appendicitis diverticulitis and other causes of your pain. Please follow-up closely with your OBGYN. Return to the emergency department if you bleed through 1 pad or tampon per hour, you develop fever, worsening pain or desire further workup and treatment. Patient Language: Burkinan Prescriptions: New nitrofurantoin monohyd/m-cryst 100 mg capsule 100 mg PO Q12H 5 Days Qty: 10 0RF Rx Instructions: must administer with a meal/food No Action polysaccharide iron complex 150 mg iron Capsule 150 mg PO BIDWM Qty: 60 0RF ibuprofen 600 mg Tablet 600 mg PO Q6H PRN (Reason: Cramping) Qty: 30 0RF Follow-up/Referrals: Aly Robertson MD [Physician] - PHYSICIAN,COUNTY NURSE [Non-Staff] - "
--- NOTE | 2025-02-15 09:49 | ED.ABDPAIN ---
HPI - Abdominal Pain General Chief Complaint: Abdominal Pain Stated Complaint: sent by PAI GOW DEALER to R/O ectopic Time Seen by Provider: 02/15/25 09:38 History of Present Illness HPI narrative: 29-year-old female who is presents to emergency department for pelvic pain, suprapubic abdominal pain, nausea vomiting and vaginal bleeding for the past 4 days. Patient had an IUD placed about a year ago with Dr. Robertson and has reportedly had no complications since and has not had any menstrual cycles since. She states 4 days ago she began developing vaginal bleeding and pelvic pain, worse on the left. She states she has passed some clots and possible tissue. She reports associated nausea, vomiting and lightheadedness. States she is slightly spotting at this point and is having to change a panty liner every couple of hours. She denies dysuria, urinary frequency urgency, vaginal discharge or concern for STDs, fever. She does endorse intermittent hot and cold flashes. She does note that she had a new sexual partner about 3 weeks ago. She contacted Dr. Robertson and was advised to come to the ED for further evaluation. Patient also notes that she took 2 at-home tests over the past 4 days and believes she noticed a positive faint line both times. Related Data Allergies Allergy/AdvReac Type Severity Reaction Status Date / Time Penicillins Allergy Unknown HIVES Verified 02/15/25 09:19 Review of Systems Review of Systems: All systems reviewed & are unremarkable except as noted in HPI and below PMFSH Social History Social History Smoking status: Current some day smoker Tobacco type: e-cigarettes/vaping Second hand tobacco smoke exposure: Yes Substance use: former Other substance usage details: stopped marijuana use when found out about Do You Feel Safe in your Home?: Yes Lack of Transportation: No Lack of Food: Never True Current Housing: I Have Housing Concerned About Future Housing: No Difficulty Paying Gas/Electric Bills: No Difficulty Paying for Meds: No Currently Unemployed: YES Education: High School Diploma/GED Difficulty w/ Childcare or Family Care: No Spiritual care concerns: No Exam Narrative: GENERAL: Well-appearing, well-nourished, and in no acute distress. HEAD: Normocephalic, atraumatic. EYES: EOMI. ENT: Nares clear, no rhinorrhea or epistaxis. Mucous membranes moist. NECK: Supple. CHEST: Clear to auscultation. No respiratory distress. HEART: Regular rate and rhythm. No murmur heard. Normal peripheral pulses. ABDOMEN: Normoactive bowel sounds. Abdomen soft with tenderness in the suprapubic region. No rebound, guarding or rigidity. No CVA tenderness. EXTREMITIES: Normal range of motion. No edema. SKIN: Warm, dry, no rash. NEURO: No focal deficits. Alert and oriented x3 Course Vital Signs Vital signs: Vital Signs Temperature 97.6 F 02/15/25 09:20 Pulse Rate 108 H 02/15/25 09:20 Respiratory Rate 16 02/15/25 09:20 Blood Pressure 128/82 02/15/25 09:20 Pulse Oximetry 100 02/15/25 09:20 Oxygen Delivery Room Air 02/15/25 09:20 Temperature 97.8 F 02/15/25 10:28 Pulse Rate 86 02/15/25 10:28 Respiratory Rate 16 02/15/25 10:28 Blood Pressure 126/76 02/15/25 10:28 Pulse Oximetry 100 02/15/25 10:28 Oxygen Delivery Room Air 02/15/25 09:20 MDM - Abdominal Pain MDM Narrative Medical decision making narrative: 29-year-old female with current IUD placement who is presents to the emergency department for pelvic pain, lower abdominal pain and abnormal vaginal bleeding for the past 4 days. See HPI for further history. Initial vital signs with mild tachycardia 108 which has since resolved. Patient is afebrile and nontoxic appearing resting comfortably in exam bed. Abdomen is soft with tenderness in the suprapubic region. Discussed differential diagnosis with the patient including UTI, STDs, PID, , diverticulitis, appendicitis, tubo-ovarian abscess, dislodged IUD and other. Discussed workup needed for this including lab work, STD testing, UA, UPT, pelvic ultrasound and CT abdomen pelvis with contrast. Nursing staff did obtain lab work which showed no leukocytosis or anemia. Chemistries are unremarkable. UA with trace leuk esterase and 6-10 red blood cells, rbc's 11-20 1+ bacteria. is negative. Prior to receiving remainder of workup including imaging and performing pelvic exam, patient is requesting to leave against medical advice. She states she is having anxiety about her children being at daycare. I did personally speak with the patient and discussed risks of leaving against medical advice at this point including undiagnosed infection, dislodged IUD, developing PID or infertility, sepsis, TBO, permanent disability and . She understands these risks and still like to leave against medical advice. CARRIE paperwork signed. She states she has an appointment with her OBGYN tomorrow which I strongly encouraged her to attend. I advised her to return to the emergency department if she desires further workup or develops any new or worsening symptoms. Given no other source for patient's symptoms at this time and UA findings, will cover for UTI with Macrobid in the interim until she is able to be evaluated further by her OBGYN. Lab Data 02/15/25 10:02 02/15/25 10:02 Labs: Lab Results 02/15/25 02/15/25 02/15/25 Range/Units 09:28 10:01 10:02 WBC 4.9 (4.5-10.0) K/mm3 RBC 4.49 (4.2-5.4) M/mm3 Hgb 13.6 D (12.0-15.0) g/dL Hct 40.6 (37.0-47.0) % MCV 90.4 (80-100) fl MCH 30.3 (26-34) pg MCHC 33.5 (32-36) g/dl RDW 12.8 (11.5-14.5) % Plt Count 175 (150-375) k/mm3 MPV 10.4 (7.4-10.4) fl Immature Gran % (Auto) 0.2 (0-0.5) % Neut % (Auto) 72.5 (45.5-73.1) % Lymph % (Auto) 15.0 L (18.3-44.2) % [place] % (Auto) 10.5 H (2.6-8.5) % Eos % (Auto) 1.6 (0-4.4) % Baso % (Auto) 0.2 (0.2-1.2) % Lymph # (Auto) 0.74 L (0.9-3.2) K/mm3 [place] # (Auto) 0.5 (0.1-0.6) K/mm3 Eos # (Auto) 0.1 (0-0.3) K/mm3 Baso # (Auto) 0.0 (0.0-0.1) K/mm3 Abs Immat Gran (auto) 0.01 (0.00-0.031) K/mm3 Absolute Neuts (auto) 3.6 (1.3-6.7) K/mm3 Absolute Nucleated RBC 0.000 (0.0-0.012) K/mm3 Nucleated RBC % 0.0 (0.0-0.2) % PT 14.2 (11.1-14.7) Seconds INR 1.1 APTT 29.3 (22.3-36.8) Seconds Sodium 138 (137-145) mmol/L Potassium 3.7 (3.4-5.0) mmol/L Chloride 108 H (98-107) mmol/L Carbon Dioxide 22 (22-30) mmol/L Anion Gap 8 (4-12) mmol/L BUN 10 (7-17) mg/dL Creatinine 0.53 L (0.7-1.0) mg/dL Estim Creat Clear Calc 101 ml/min Estimated GFR > 60 (59 - ) Glucose 87 (65-110) mg/dL Calcium 8.5 (8.4-10.2) mg/dL Total Bilirubin 0.5 (0.2-1.3) mg/dL AST 27 (14-36) U/L ALT 17 (6-35) U/L Alkaline Phosphatase 60 (38-126) U/L Total Protein 7.0 (6.3-8.2) g/dL Albumin 4.1 (3.5-5.1) g/dL Urine Color Dark yellow (Yellow) Urine Appearance Turbid H (Clear) Urine pH 5.5 (5.0-9.0) Ur Specific [place] 1.032 (1.001-1.035) Urine Protein 1+ H (Negative) mg/dL Urine Glucose (UA) Negative (Negative) mg/dL Urine Ketones 1+ H (Negative) mg/dL Ur Blood (Man) 3+ H (Negative) Urine Nitrate Negative (Negative) Urine Bilirubin Negative (Negative) Urine Urobilinogen 1.0 (<2.0) mg/dL Add Ur Microanalysis Reviewed Leukocyte Esterase Rfl Trace H (Negative) JERAMIE/UL Urine RBC 11-20 H (0-2) /hpf Urine WBC 6-10 H (0-3) /hpf Ur Squamous Epith Cells Moderate (Few) /hpf Urine Bacteria 1+ H /hpf Urine Casts 0-2 POC Urine HCG, Qual Negative Negative (Negative) Discharge Plan Discharge Clinical Impression: Abnormal uterine bleeding, Abnormal urinalysis Patient Disposition: Left Against Medical Advice Condition: Stable Instructions: Antibiotic Form, Abnormal (Dysfunctional) Uterine Bleeding (ED), Urinary Tract Infection in Women (DC) Additional Instructions: You were evaluated in the emergency department for lower abdominal and pelvic pain and abnormal uterine bleeding. Your choosing to leave against medical advice prior to any further workup. We were unable to evaluate for a dislodged IUD, pelvic inflammatory disease, appendicitis diverticulitis and other causes of your pain. Please follow-up closely with your OBGYN. Return to the emergency department if you bleed through 1 pad or tampon per hour, you develop fever, worsening pain or desire further workup and treatment. Patient Language: Hebrew Prescriptions: New nitrofurantoin monohyd/m-cryst 100 mg capsule 100 mg PO Q12H 5 Days Qty: 10 0RF Rx Instructions: must administer with a meal/food No Action polysaccharide iron complex 150 mg iron Capsule 150 mg PO BIDWM Qty: 60 0RF ibuprofen 600 mg Tablet 600 mg PO Q6H PRN (Reason: Cramping) Qty: 30 0RF Follow-up/Referrals: Aly Robertson MD [Physician] - PHYSICIAN,INTEGRATED MARKETING INTERN [Non-Staff] -
[2025-02-15 09:54] LABS: BEDSIDEPREGUCG Negative (Negative)
[2025-02-15] MEDS: SODIUM CHLORIDE 0.9% IV 1,000 ML 999 ML IV CONT (10:02)
[2025-02-15 10:03] LABS: BEDSIDEPREGUCG Negative (Negative)
[2025-02-15] MEDS: ACETAMINOPHEN 500 MG TABLET 1000 MG PO (10:03)
[2025-02-15] MEDS: METOCLOPRAMIDE HCL INJ 10 MG/2 ML VIAL IV PUSH (10:03)
[2025-02-15 10:08] LABS: Basophils Percent Auto 0.2 % (0.2-1.2); Eosinophils Absolute Auto 0.1 K/mm3 (0-0.3); Eosinophils Percent Auto 1.6 % (0-4.4); Hematocrit 40.6 % (37.0-47.0); Hemoglobin 13.6 g/dL (12.0-15.0); Immature Granulocyte Absolute 0.01 K/mm3 (0.00-0.031); Immature Granulocyte Percent A 0.2 % (0-0.5); Lymphocytes Absolute Auto 0.74 K/mm3 (0.9-3.2); Mean Corpuscular HGB Conc 33.5 g/dl (32-36); Mean Corpuscular Hemoglobin 30.3 pg (26-34); Mean Corpuscular Volume 90.4 fl (80-100); Mean Platelet Volume 10.4 fl (7.4-10.4); Monocytes Absolute Auto 0.5 K/mm3 (0.1-0.6); Monocytes Percent Auto 10.5 % (2.6-8.5); Neutrophils Absolute Auto 3.6 K/mm3 (1.3-6.7); Neutrophils Percent Auto 72.5 % (45.5-73.1); Platelet Count Result 175 k/mm3 (150-375); Red Blood Count 4.49 M/mm3 (4.2-5.4); Red Cell Distribution Width 12.8 % (11.5-14.5); White Blood Count 4.9 K/mm3 (4.5-10.0)
[2025-02-15 10:17] LABS: Add Urine Microscopic? YES; Alanine Aminotransferase 17 U/L (6-35); Albumin Level 4.1 g/dL (3.5-5.1); Alkaline Phosphatase 60 U/L (38-126); Anion Gap 8 mmol/L (4-12); Appearance Urine Turbid (Clear); Aspartate Amino Transferase 27 U/L (14-36); Bacteria Urine 1+ /hpf; Bilirubin Urine Negative (Negative); Bilirubin,Total 0.5 mg/dL (0.2-1.3); Blood Urea Nitrogen 10 mg/dL (7-17); Blood Urine 3+ (Negative); Calcium 8.5 mg/dL (8.4-10.2); Carbon Dioxide 22 mmol/L (22-30); Chloride 108 mmol/L (98-107); Color Urine Dark Yellow (Yellow); Estimated CRCL calculation 101 ml/min; Estimated Glomerular Filt Rate > 60; Glucose 87 mg/dL (65-110); Glucose Urine UA Negative (Negative); Ketones Urine 1+ mg/dL (Negative); Leukocyte Esterase Ur Trace LEU/UL (Negative); Need Manual Microscopic Reviewed; Nitrate Urine Negative (Negative); Non Pathogenic Casts 0-2; Potassium 3.7 mmol/L (3.4-5.0); Protein Urine 1+ mg/dL (Negative); Sodium 138 mmol/L (137-145); Specific Grav Ur 1.032 (1.001-1.035); Squamous Epithelial Cell Urine Moderate /hpf (Few); pH Urine 5.5 (5.0-9.0)
[2025-02-15 10:28] VITALS: BP 126/76; PULSE 86; RESP 16; TEMP 36.6; O2SAT 100
[2025-02-15 10:33] LABS: INR 1.1; Prothrombin Time 14.2 Seconds (11.1-14.7)
[2025-02-15 10:34] LABS: Partial Thromboplastin Time 29.3 Seconds (22.3-36.8)
[2025-02-15] MEDS: NITROFURANTOIN MONOHYD MACROCR 100 MG CAP PO (10:49)
[2025-02-15 10:55] VITALS: BP 128/76; PULSE 92; RESP 16; TEMP 36.6; O2SAT 100
== END 2025-02-15 11:00 | disposition left against medical advice (07) ==
PROVIDERS: Emergency Provider Physician Assistant
DX: N93.9 Abnormal uterine and vaginal bleeding, unspecified (principal); R82.90 Unspecified abnormal findings in urine; F17.290 Nicotine dependence, other tobacco product, uncomplicated
CPT/HCPCS: 36415; 80053; 81001; 81025; 85025; 85610; 85730; 96361; 96374; 99284; A9270; J2765; J7030

== ENCOUNTER 2025-09-10 11:42 | Emergency (ER) | payer OTHER, SELFPAY ==
[2025-09-10 11:47] VITALS: BP 114/87; PULSE 100; RESP 20; TEMP 37; O2SAT 100
[2025-09-10 12:13] LABS: EDSTREPNEGPOS1 Positive (Negative)
--- NOTE | 2025-09-10 12:38 | ED.URI ---
HPI - URI/Sore Throat General Chief Complaint: Upper Respiratory Infection Stated Complaint: Sore Throat Time Seen by Provider: 09/10/25 12:30 Source: patient and RN notes reviewed Mode of arrival: ambulatory Limitations: no limitations History of Present Illness HPI Narrative: 30-year-old female presents Express Care complaining of sore throat for approximately 6 days. Patient's children just tested positive for strep this morning. Patient's symptoms are not improving. Patient denies any other symptoms. Related Data Allergies Allergy/AdvReac Type Severity Reaction Status Date / Time Penicillins Allergy Unknown HIVES Verified 09/10/25 12:00 Review of Systems Review of Systems: CONSTITUTIONAL: Denies fever, chills, or sweats. EYES: Denies visual changes, redness, or discharge. ENT: Denies rhinorrhea, congestion, or otalgia. Positive for sore throat CARDIOVASCULAR: Denies chest pain, palpitations, or edema. RESPIRATORY: Denies cough or dyspnea. GASTROINTESTINAL: Denies abdominal pain, nausea, vomiting, or diarrhea. GENITOURINARY: Denies dysuria or hematuria. SKIN: Denies rash or itching. MUSCULOSKELETAL: Denies back pain, joint pain, or myalgia. NEUROLOGIC: Denies headache, numbness, or weakness. PSYCHIATRIC: Denies anxiety or depression. All other systems reviewed are negative, except as documented in HPI. PMFSH Social History Social History Smoking status: Current some day smoker Tobacco type: e-cigarettes/vaping Second hand tobacco smoke exposure: Yes Substance use: former Other substance usage details: stopped marijuana use when found out about Lack of Transportation: No Lack of Food: Never True Current Housing: I Have Housing Concerned About Future Housing: No Difficulty Paying Gas/Electric Bills: No Difficulty Paying for Meds: No Currently Unemployed: YES Education: High School Diploma/GED Difficulty w/ Childcare or Family Care: No Spiritual care concerns: No Comments At the time of my signature, I reviewed and agree with the nursing past medical, surgical, social, and family history. There is no relevant family history pertinent to the patient complaint. Exam Narrative: GENERAL: This is a well-nourished, well-developed adult, in no apparent distress. They are non ill-appearing, nontoxic appearing. HEAD: normocephalic, atraumatic. EYES: Sclera clear/white. Conjunctiva normal. Vision is grossly intact. Extraocular movements intact EARS: External ears normal, auditory canals clear and without drainage, TMs normal without perforation. Hearing grossly intact. NOSE: External nose normal with no obvious nasal discharge, nasal turbinates without redness, no rhinorrhea. THROAT: Mucous membranes moist, posterior pharynx erythematous red and patchy. Uvula midline. NECK: Neck supple, mild cervical lymphadenopathy, no masses or thyromegaly. CARDIOVASCULAR: Regular rate and rhythm without murmurs, gallops, or rubs. RESPIRATORY: Clear to auscultation. Breath sounds equal bilaterally. No wheezes, rales, or rhonchi. SKIN: warm, Dry, intact with no suspicious lesions or rash, good texture and turgor. NEURO: awake, alert, and oriented to person, place and time. There were no obvious focal neurologic abnormalities. EXTREMITIES: No joint tenderness, effusion, or edema noted. BACK: Nontender without deformity. Course Course Level of Care: Express Care Visit Vital Signs Vital signs: Vital Signs Temperature 98.6 F 09/10/25 11:47 Pulse Rate 100 09/10/25 11:47 Respiratory Rate 20 09/10/25 11:47 Blood Pressure 114/87 09/10/25 11:47 Pulse Oximetry 100 09/10/25 11:47 Oxygen Delivery Room Air 09/10/25 11:47 Temperature 98.6 F 09/10/25 11:47 Pulse Rate 100 09/10/25 11:47 Respiratory Rate 20 09/10/25 11:47 Blood Pressure 114/87 09/10/25 11:47 Pulse Oximetry 100 09/10/25 11:47 Oxygen Delivery Room Air 09/10/25 11:47 [facility] Narrative Medical decision making narrative: Rapid strep is positive. Patient reports significant hives breathing problems with penicillin, will treat her with azithromycin. Discussed physical exam findings. Advised supportive measures and signs/symptoms to go to the ER. Pt is appropriate for outpt treatment and f/u. Differential Diagnosis Differential Diagnosis: Differential diagnostic considerations for upper respiratory infection include upper respiratory infection, croup, otitis media, sinusitis, viral infection, bronchitis, influenza, pharyngitis, strep, uvulitis. Lab Data [facility] Lab Attestation statement: I personally reviewed the patient's lab results. Labs: Lab Results 12/08/25 Range/Units 11:48 POC Grp A Strep Screen Positive (Negative) Critical Care Time Critical Care Time Critical Care Time: No Discharge Plan Discharge Clinical Impression: Pharyngitis Qualifiers: Pharyngitis/tonsillitis etiology: streptococcus Qualified Code(s): J02.0 - Streptococcal pharyngitis Patient Disposition: Home Condition: Stable Instructions: Antibiotic Form, Strep Throat (ED) Additional Instructions: You tested positive for strep throat. ?Please take the azithromycin as prescribed until gone. ?You will be contagious for 24 hours after starting the medication. ?After 24 hours on antibiotics throw tooth brush away and start using a new one. Wash your sheets and cup/water bottle that is used daily. Do not share drinks. Take Tylenol or Ibuprofen for pain or fever, follow instructions on the bottle. ?Rest and stay hydrated. ?Follow up with your PCP in 3 days if symptoms are not improving. ?Go to the ER immediately if you develop worsening symptoms such as chest pain, vomiting, unable to swallow, shortness of breath, difficulty swallowing, or any serious concerns.. ? Patient Language: Ug[place]an Prescriptions: New azithromycin 250 mg tablet See Rx Instructions .ROUTE .COMPLEX Qty: 6 0RF Rx Instructions: For 250 mg dose pack: take 500 mg today (day 1), then 250 mg for 4 days (days 2-5) Follow-up/Referrals: PHYSICIAN,GEOSPATIAL SYSTEMS INTEGRATOR [Primary Care Provider, Internal Medicine] Stand Alone Forms: Work/School Release IP Time of Disposition: 12:32
== END 2025-09-10 12:35 | disposition home or self-care (01) ==
DX: J02.0 Streptococcal pharyngitis (principal); F17.290 Nicotine dependence, other tobacco product, uncomplicated
CPT/HCPCS: 87880; 99213; G0463